=== PATIENT | female | born 1935 | race African-American/Black ===

== ENCOUNTER 2020-09-02 10:50 | Inpatient (IN) | payer MEDICARE, MEDICAID ==
[2020-09-01] MEDS: DEXT 5%/0.45% NACL 1000ML 1,000 ML IV SCH (02:15)
[~2020-09-02] VITALS: Ht 180.3 cm; Wt 59.4 kg
[2020-09-02] MEDS ORDERED: SODIUM CHLORIDE 0.9% 1,000 ML IV ONE (11:15)
[2020-09-02] MEDS ORDERED: PANTOPRAZOLE SODIUM 40 MG/VIAL IV ONE (11:15)
[2020-09-02 11:55] LABS: BASOPHILS % 0.2 % (0.0-2.0); HEMATOCRIT. 22.7 % (36.0-48.0); HEMOGLOBIN. 7.1 g/dL (12.0-16.0); LYMPHOCYTES % 7.9 % (20.0-50.0); MEAN CORPUSCULAR HEMOGLOBIN 26.6 pg (28.0-32.0); MEAN CORPUSCULAR VOLUME 85.7 fL (81.0-99.0); MEAN PLATELET VOLUME 8.8 fl (7.4-10.4); MONOCYTES % 4.1 % (2.0-8.0); NEUTROPHILS % 87.8 % (40.0-76.0); PLATELET 197 x1000/uL (130-400); RED BLOOD CELL COUNT 2.65 mill/uL (4.2-5.4); RED CELL DISTRIBUTION WIDTH 15.7 % (11.6-14.6)
[2020-09-02 12:02] LABS: CHLORIDE 110 mEq/L (98-107)
[2020-09-02 12:04] LABS: INR 1.1; PROTHROMBIN TIME 11.4 sec (9.6-11.0)
[2020-09-02] MEDS ORDERED: SODIUM CHLORIDE 0.9% 1000ML BAG (SEPSIS BOLUS) IV ONE (12:15)
[2020-09-02] MEDS ORDERED: PIPERACILLIN/TAZ 3.375G PREMIX 50 ML IV ONE (12:15)
[2020-09-02 16:08] LABS: CLARITY URINE CLEAR (CLEAR); COLOR URINE YELLOW (YELLOW); KETONES URINE NEGATIVE (NEGATIVE); LEUKOCYTE ESTERASE URINE NEGATIVE (NEGATIVE); NITRITE URINE NEGATIVE (NEGATIVE); OCCULT BLOOD URINE NEGATIVE (NEGATIVE); PH URINE 5.5 (4.5-8.0); PROTEIN URINE NEGATIVE (NEGATIVE); SPECIFIC GRAVITY URINE 1.027 (1.005-1.030)
[2020-09-02 16:40] LABS: BG BASE EXCESS -3.5 mmol/L (-2.0-2.0); BG CARBOXYHEMOGLOBIN 0.3 % (0.5-1.5); BG DEOXYHEMOGLOBIN 11.6 % (0.0-5.0); BG METHEMOGLOBIN 0.3 % (0.0-1.5); BG OXYGEN SATURATION 88.3 % (92.0-98.5); BG OXYHEMOGLOBIN 87.8 % (94.0-97.0); BG PCO2 29.8 mmHg (35.0-45.0); BG PH 7.444 (7.350-7.450); BG PO2 51.8 mmHg (75.0-100.0); BG SAMPLE SITE RIGHT RADIAL; BG TOTAL HEMOGLOBIN 8.8 g/dL (12.0-18.0); BG VENT MODE ROOM AIR
[2020-09-02] MEDS ORDERED: MELO-106 PO (17:33)
[2020-09-02] MEDS ORDERED: ASCO500C18 MT (17:34)
[2020-09-02 17:37] VITALS: BP 147/84
[2020-09-02] MEDS ORDERED: ONDANSETRON HCL 4MG/2ML INJ IV PRN (17:45)
[2020-09-02] MEDS ORDERED: MORPHINE SULFATE 2 MG/ML CPJ (NOT FOR IM USE) IV PRN (17:45)
[2020-09-02] MEDS ORDERED: LORAZEPAM 2MG/ML CPJ IV PRN (17:45)
[2020-09-02] MEDS ORDERED: ACETAMINOPHEN 325MG TABLET PO PRN (17:45)
[2020-09-02] MEDS ORDERED: DIPHENHYDRAMINE 50MG/ML VIAL IV PRN (17:45)
[2020-09-02] MEDS ORDERED: ACETAMINOPHEN 650MG SUPP PR PRN (17:45)
[2020-09-02 17:49] VITALS: BP 98/84
[2020-09-02] MEDS ORDERED: DILTIAZEM HCL 30MG TABLET PO ONE (18:00)
[2020-09-02] MEDS ORDERED: DILTIAZEM HCL 30MG TABLET PO NR (18:00)
[2020-09-02] MEDS ORDERED: ALBUTEROL 6.7GM HFA INHALER ORI SCH (18:30)
[2020-09-02] MEDS: DEXAMETHASONE 10 MG/ML VIAL IV SCH (18:51)
[2020-09-02 20:00] VITALS: BP 130/72
[2020-09-02] MEDS ORDERED: VANCOMYCIN 1500MG in DEXTROSE 5% WATER 250ML IV NR (20:00)
[2020-09-02 20:48] LABS: HEMATOCRIT 31.4 % (36.0-48.0); HEMOGLOBIN 9.8 g/dL (12.0-16.0)
[2020-09-02] MEDS: PANTOPRAZOLE SODIUM 40 MG/VIAL IV SCH (23:21)
[2020-09-02] MEDS: PIPERACILLIN/TAZOBACTAM 3.375 G in DEXT 5% WATER 100 ML IV SCH (23:22)
[2020-09-02 23:24] LABS: HEMATOCRIT 28.4 % (36.0-48.0)
[2020-09-02 23:31] LABS: INR 1.1; PROTHROMBIN TIME 11.7 sec (9.6-11.0)
[2020-09-02 23:35] LABS: CREATINE KINASE 151 IU/L (26-192)
[2020-09-02 23:36] LABS: CREATINE KINASE MB FRACTION 2.5 ng/mL (0.5-3.6)
[2020-09-03] VITALS: BP 122/81
[2020-09-03 04:00] VITALS: BP 119/76
[2020-09-03] MEDS: PIPERACILLIN/TAZOBACTAM 3.375 G in DEXT 5% WATER 100 ML IV SCH ×3 (06:25→23:48)
[2020-09-03 06:56] LABS: BASOPHILS % 0.2 % (0.0-2.0); HEMATOCRIT. 27.1 % (36.0-48.0); HEMOGLOBIN. 8.8 g/dL (12.0-16.0); LYMPHOCYTES % 7.8 % (20.0-50.0); MEAN CORPUSCULAR HEMOGLOBIN 27.7 pg (28.0-32.0); MEAN CORPUSCULAR VOLUME 85.2 fL (81.0-99.0); MEAN PLATELET VOLUME 8.9 fl (7.4-10.4); MONOCYTES % 4.6 % (2.0-8.0); NEUTROPHILS % 87.4 % (40.0-76.0); PLATELET 164 x1000/uL (130-400); RED BLOOD CELL COUNT 3.18 mill/uL (4.2-5.4); RED CELL DISTRIBUTION WIDTH 14.9 % (11.6-14.6)
[2020-09-03 07:33] LABS: CHLORIDE 114 mEq/L (98-107)
[2020-09-03 08:00] VITALS: BP 106/69
[2020-09-03 08:03] LABS: FOLIC ACID (FOLATE) SERUM 11.9 ng/mL (>5.38)
[2020-09-03 08:06] LABS: LDL CHOLESTEROL 61 mg/dL (5-100)
[2020-09-03 08:08] LABS: HDL CHOLESTEROL 40 mg/dL (40-59)
[2020-09-03 08:09] LABS: TOTAL IRON BINDING CAPACITY 322 ug/dL (250-450)
[2020-09-03 08:11] LABS: CREATINE KINASE MB FRACTION 2.2 ng/mL (0.5-3.6)
[2020-09-03 08:12] LABS: CREATINE KINASE 154 IU/L (26-192); T4 FREE 1.25 ng/dL (0.76-1.46)
[2020-09-03] MEDS: DEXAMETHASONE 10 MG/ML VIAL IV SCH (09:22)
[2020-09-03] MEDS: PANTOPRAZOLE SODIUM 40 MG/VIAL IV SCH ×2 (09:22→20:39)
[2020-09-03] MEDS: VANCOMYCIN 1 G PREMIX 200 ML IV SCH (09:22)
[2020-09-03] MEDS: DEXT 5%/0.45% NACL 1000ML 1,000 ML IV SCH (11:13)
[2020-09-03 12:00] VITALS: BP 124/76
[2020-09-03 12:15] LABS: BG BASE EXCESS -0.9 mmol/L (-2.0-2.0); BG CARBOXYHEMOGLOBIN 0.3 % (0.5-1.5); BG DEOXYHEMOGLOBIN 6.3 % (0.0-5.0); BG HCO3 ACT 21.5 mmol/L (22.0-26.0); BG METHEMOGLOBIN 0.3 % (0.0-1.5); BG OXYGEN SATURATION 93.7 % (92.0-98.5); BG OXYHEMOGLOBIN 93.1 % (94.0-97.0); BG PCO2 28.1 mmHg (35.0-45.0); BG PH 7.501 (7.350-7.450); BG PO2 63.6 mmHg (75.0-100.0); BG SAMPLE SITE RIGHT RADIAL; BG TOTAL HEMOGLOBIN 10.1 g/dL (12.0-18.0); BG VENT MODE ROOM AIR
[2020-09-03 16:00] VITALS: BP 131/73
[2020-09-03] MEDS: METHYLPREDNISOLONE SOD SUCC 40 MG/ML VIAL IV SCH (16:56)
[2020-09-03] MEDS: SUCRALFATE 1 G/10 ML UDC PO SCH ×2 (16:56→21:05)
[2020-09-03 20:00] VITALS: BP 130/78
[2020-09-03] MEDS: IRON SUCROSE COMPLEX 100 MG/5 ML ML IV SCH (21:05)
[2020-09-04] VITALS: BP_SYST 117; BP_SYST 175; BP_DIAS 131; BP_DIAS 70
[2020-09-04] MEDS: METHYLPREDNISOLONE SOD SUCC 40 MG/ML VIAL IV SCH ×2 (03:23→16:54)
[2020-09-04] MEDS: VANCOMYCIN 1 G PREMIX 200 ML IV SCH ×2 (03:23→21:57)
[2020-09-04] MEDS: DEXT 5%/0.45% NACL 1000ML 1,000 ML IV SCH ×2 (03:23→22:07)
[2020-09-04 04:00] VITALS: BP 112/77
[2020-09-04 06:02] LABS: PROTHROMBIN TIME 11.1 sec (9.6-11.0)
[2020-09-04 06:07] LABS: HEMATOCRIT. 25.3 % (36.0-48.0); HEMOGLOBIN. 8.3 g/dL (12.0-16.0); MEAN PLATELET VOLUME 9.2 fl (7.4-10.4); PLATELET 169 x1000/uL (130-400); RED BLOOD CELL COUNT 2.98 mill/uL (4.2-5.4); RED CELL DISTRIBUTION WIDTH 15.1 % (11.6-14.6)
[2020-09-04] MEDS: PIPERACILLIN/TAZOBACTAM 3.375 G in DEXT 5% WATER 100 ML IV SCH ×2 (06:11→16:54)
[2020-09-04] MEDS: SUCRALFATE 1 G/10 ML UDC PO SCH ×4 (06:14→22:02)
[2020-09-04 07:39] LABS: CHLORIDE 112 mEq/L (98-107)
[2020-09-04 08:20] VITALS: BP 127/77
[2020-09-04] MEDS ORDERED: METOCLOPRAMIDE HCL 10MG/2ML VIAL IV SCH ×2 (09:30→11:30)
[2020-09-04] MEDS: PANTOPRAZOLE SODIUM 40 MG/VIAL IV SCH ×2 (09:57→21:34)
[2020-09-04 12:06] VITALS: BP 106/68
[2020-09-04] MEDS ORDERED: FENTANYL CITRATE/PF 50MCG/ML 2ML VIAL ONE (14:33)
[2020-09-04] MEDS ORDERED: DIPHENHYDRAMINE 50MG/ML VIAL ONE (14:34)
[2020-09-04] MEDS ORDERED: MIDAZOLAM HCL 2 MG/2 ML VIAL ONE (14:34)
[2020-09-04 16:17] VITALS: BP 122/67
[2020-09-04 16:49] LABS: PLATELET ESTIMATE NORMAL
[2020-09-04] MEDS: METOCLOPRAMIDE HCL 10MG/2ML VIAL IV SCH ×2 (16:55→21:38)
[2020-09-04 20:00] VITALS: BP 108/67
[2020-09-04] MEDS: IRON SUCROSE COMPLEX 100 MG/5 ML ML IV SCH (21:42)
[2020-09-05] VITALS: BP 126/79
[2020-09-05] MEDS: PIPERACILLIN/TAZOBACTAM 3.375 G in DEXT 5% WATER 100 ML IV SCH ×3 (01:07→17:37)
[2020-09-05] MEDS: METHYLPREDNISOLONE SOD SUCC 40 MG/ML VIAL IV SCH ×2 (03:44→17:37)
[2020-09-05 04:00] VITALS: BP 119/74
[2020-09-05] MEDS: SUCRALFATE 1 G/10 ML UDC PO SCH ×5 (06:10→21:44)
[2020-09-05] MEDS: METOCLOPRAMIDE HCL 10MG/2ML VIAL IV SCH ×5 (06:10→21:43)
[2020-09-05 06:54] LABS: BASOPHILS % 0.2 % (0.0-2.0); HEMATOCRIT. 26.2 % (36.0-48.0); HEMOGLOBIN. 8.5 g/dL (12.0-16.0); LYMPHOCYTES % 8.2 % (20.0-50.0); MEAN CORPUSCULAR HEMOGLOBIN 27.7 pg (28.0-32.0); MEAN CORPUSCULAR VOLUME 85.4 fL (81.0-99.0); MEAN PLATELET VOLUME 8.8 fl (7.4-10.4); MONOCYTES % 6.9 % (2.0-8.0); NEUTROPHILS % 84.7 % (40.0-76.0); PLATELET 190 x1000/uL (130-400); RED BLOOD CELL COUNT 3.07 mill/uL (4.2-5.4)
[2020-09-05 07:18] LABS: CHLORIDE 110 mEq/L (98-107)
[2020-09-05 08:15] VITALS: BP 125/71
[2020-09-05] MEDS: PANTOPRAZOLE SODIUM 40 MG/VIAL IV SCH ×2 (09:00→21:43)
[2020-09-05] MEDS ORDERED: POTASSIUM CHLORIDE 20MEQ TABLET SR PO NR (11:00)
[2020-09-05] MEDS ORDERED: POTASSIUM CHLORIDE 20MEQ TABLET SR PO ONE (11:00)
[2020-09-05 12:12] VITALS: BP 129/70
[2020-09-05] MEDS: VANCOMYCIN 750 MG PREMIX 150 ML IV SCH (14:13)
[2020-09-05 14:37] LABS: BG BASE EXCESS -3.3 mmol/L (-2.0-2.0); BG CARBOXYHEMOGLOBIN 0.3 % (0.5-1.5); BG DEOXYHEMOGLOBIN 7.1 % (0.0-5.0); BG FRACTION INSPIRED OXYGEN 21; BG HCO3 ACT 20.2 mmol/L (22.0-26.0); BG METHEMOGLOBIN 0.3 % (0.0-1.5); BG OXYGEN SATURATION 92.9 % (92.0-98.5); BG OXYHEMOGLOBIN 92.3 % (94.0-97.0); BG PCO2 30.5 mmHg (35.0-45.0); BG PH 7.439 (7.350-7.450); BG PO2 61.7 mmHg (75.0-100.0); BG SAMPLE SITE RIGHT BRACHIAL; BG TOTAL HEMOGLOBIN 9.3 g/dL (12.0-18.0); BG VENT MODE ROOM AIR
[2020-09-05] MEDS ORDERED: POTASSIUM CHLORIDE 20MEQ/PACKET PO NR (15:15)
[2020-09-05 16:00] VITALS: BP 152/80
[2020-09-05] MEDS: DEXT 5%/0.45% NACL 1000ML 1,000 ML IV SCH (17:37)
[2020-09-05 20:00] VITALS: BP 135/75
[2020-09-05] MEDS: IRON SUCROSE COMPLEX 100 MG/5 ML ML IV SCH (21:44)
[2020-09-06] VITALS: BP 143/91
[2020-09-06] MEDS: PIPERACILLIN/TAZOBACTAM 3.375 G in DEXT 5% WATER 100 ML IV SCH ×3 (00:33→16:42)
[2020-09-06] MEDS: VANCOMYCIN 750 MG PREMIX 150 ML IV SCH ×2 (00:33→11:23)
[2020-09-06 04:00] VITALS: BP 127/72
[2020-09-06] MEDS: METHYLPREDNISOLONE SOD SUCC 40 MG/ML VIAL IV SCH ×2 (04:48→16:42)
[2020-09-06] MEDS: DEXT 5%/0.45% NACL 1000ML 1,000 ML IV SCH (04:48)
[2020-09-06] MEDS: SUCRALFATE 1 G/10 ML UDC PO SCH ×3 (06:27→16:42)
[2020-09-06] MEDS: METOCLOPRAMIDE HCL 10MG/2ML VIAL IV SCH ×3 (06:27→16:42)
[2020-09-06] MEDS ORDERED: CLON0.2T MT (06:57)
[2020-09-06] MEDS ORDERED: ZINC50TA69 PO (06:57)
[2020-09-06] MEDS ORDERED: LOSA25TA26 MT (07:04)
[2020-09-06] MEDS ORDERED: DONE10TA36 MT (07:04)
[2020-09-06] MEDS ORDERED: NIFE-72 MT (07:04)
[2020-09-06] MEDS ORDERED: LOVA40TA73 MT (07:04)
[2020-09-06] MEDS ORDERED: MEMA10TA55 MT (07:04)
[2020-09-06] MEDS ORDERED: ATEN50TA MT (07:04)
[2020-09-06] MEDS ORDERED: NIFE20CA MT (07:04)
[2020-09-06] MEDS ORDERED: SERT-422 MT (07:04)
[2020-09-06] MEDS ORDERED: HYDR-4135 MT (07:04)
[2020-09-06] MEDS ORDERED: ZINC50TA69 MT (07:04)
[2020-09-06 07:40] LABS: HEMOGLOBIN. 8.3 g/dL (12.0-16.0); MEAN CORPUSCULAR HEMOGLOBIN 27.9 pg (28.0-32.0); MEAN CORPUSCULAR VOLUME 84.4 fL (81.0-99.0); MEAN PLATELET VOLUME 8.3 fl (7.4-10.4); PLATELET 207 x1000/uL (130-400); RED BLOOD CELL COUNT 2.96 mill/uL (4.2-5.4); RED CELL DISTRIBUTION WIDTH 15.2 % (11.6-14.6)
[2020-09-06 08:00] VITALS: BP 150/82
[2020-09-06 08:32] LABS: CHLORIDE 113 mEq/L (98-107)
[2020-09-06] MEDS ORDERED: POTASSIUM CHLORIDE 20MEQ/PACKET PO NR (08:45)
[2020-09-06] MEDS: PANTOPRAZOLE SODIUM 40 MG/VIAL IV SCH (09:09)
[2020-09-06 10:50] LABS: NUCLEATED RED BLOOD CELLS 3 /100 WBC; PLATELET ESTIMATE NORMAL
[2020-09-06 12:00] VITALS: BP 117/61
[2020-09-06 16:00] VITALS: BP 145/81
[2020-09-06] MEDS ORDERED: SUCR1TAB30 MT (16:36)
[2020-09-06] MEDS ORDERED: AMOX-424 MT (16:36)
[2020-09-06] MEDS ORDERED: PROT40 MT (16:36)
[2020-09-06 17:45] VITALS: BP 145/81
== END 2020-09-06 19:25 | disposition home or self-care (01) | DRG 374 ==
LOC: ER 11:09 → 7WST 14:14 → EDBEDREQSVC 14:19 → EDBEDREQ 14:19 → ENRESERV 14:48 → SUPCPDRO 16:10 → 6WST 09-03 06:28
PROVIDERS: ADMIT Internal Medicine; ATTEND Internal Medicine
PROC: 30233N1 Transfusion of Nonautologous Red Blood Cells into Peripheral Vein, Percutaneous Approach (ICD-10-PCS; 2020-09-02)
PROC: 0DB68ZX Excision of Stomach, Via Natural or Artificial Opening Endoscopic, Diagnostic (ICD-10-PCS; principal; 2020-09-04)
DX: C16.9 Malignant neoplasm of stomach, unspecified (principal); A41.9 Sepsis, unspecified organism; J18.9 Pneumonia, unspecified organism; K25.4 Chronic or unspecified gastric ulcer with hemorrhage; E46 Unspecified protein-calorie malnutrition; E87.2 Acidosis; I47.2 Ventricular tachycardia; C85.93 Non-Hodgkin lymphoma, unspecified, intra-abdominal lymph nodes; Z68.1 Body mass index [BMI] 19.9 or less, adult; D50.9 Iron deficiency anemia, unspecified; E87.6 Hypokalemia; M16.11 Unilateral primary osteoarthritis, right hip; K80.20 Calculus of gallbladder without cholecystitis without obstruction; K42.9 Umbilical hernia without obstruction or gangrene; R09.02 Hypoxemia; M17.11 Unilateral primary osteoarthritis, right knee; R73.9 Hyperglycemia, unspecified; D17.79 Benign lipomatous neoplasm of other sites; K75.3 Granulomatous hepatitis, not elsewhere classified; Z79.899 Other long term (current) drug therapy; Z87.891 Personal history of nicotine dependence; Z20.822 Contact with and (suspected) exposure to COVID-19
CPT/HCPCS: 36415; 36600; 71045; 74176; 80048; 80053; 80061; 80202; 81003; 82375; 82378; 82550; 82553; 82607; 82728; 82746; 82805; 83540; 83550; 83605; 83735; 84145; 84439; 84443; 84484; 85014; 85018; 85025; 85044; 85049; 85384; 86850; 86900; 86920; 87426; 88305; 88313; 93005; 93306; 93970; 99291; C9113; J1100; J1200; J2250; J2543; J2765; J2920; J3010; J3370; J7030; J7060; P9016; U0003

== ENCOUNTER 2020-09-07 12:42 | Inpatient (IN) | payer MEDICARE, MEDICAID ==
[~2020-09-07] VITALS: Ht 160 cm; Wt 51.7 kg
[~2020-09-07 12:42] MED LIST: AMOX-424 MT; ASCO500C18 MT; ATEN50TA MT; DONE10TA36 MT; HYDR-4135 MT; LOSA25TA26 MT; LOVA40TA73 MT; MELO-106 PO; MEMA10TA55 MT; NIFE20CA MT; PROT40 MT; SERT-422 MT; SUCR1TAB30 MT; ZINC50TA69 PO
[2020-09-07] MEDS ORDERED: ONDANSETRON HCL 4MG/2ML INJ IV STA (12:49)
[2020-09-07] MEDS ORDERED: SODIUM CHLORIDE 0.9% 1,000 ML IV ONE (13:00)
[2020-09-07] MEDS ORDERED: PANTOPRAZOLE SODIUM 40 MG/VIAL IV ONE (13:15)
[2020-09-07 13:34] LABS: HEMATOCRIT. 22.9 % (36.0-48.0); HEMOGLOBIN. 7.2 g/dL (12.0-16.0); MEAN CORPUSCULAR HEMOGLOBIN 27.7 pg (28.0-32.0); MEAN CORPUSCULAR VOLUME 88.1 fL (81.0-99.0); MEAN PLATELET VOLUME 8.3 fl (7.4-10.4); PLATELET 230 x1000/uL (130-400); RED CELL DISTRIBUTION WIDTH 15.2 % (11.6-14.6)
[2020-09-07 13:35] LABS: BG BASE EXCESS -2.8 mmol/L (-2.0-2.0); BG CARBOXYHEMOGLOBIN 0.2 % (0.5-1.5); BG FRACTION INSPIRED OXYGEN 21; BG HCO3 ACT 20.5 mmol/L (22.0-26.0); BG METHEMOGLOBIN 0.5 % (0.0-1.5); BG OXYHEMOGLOBIN 93.3 % (94.0-97.0); BG PCO2 28.7 mmHg (35.0-45.0); BG PH 7.471 (7.350-7.450); BG PO2 70.3 mmHg (75.0-100.0); BG SAMPLE SITE RIGHT RADIAL; BG VENT MODE ROOM AIR
[2020-09-07 13:38] LABS: CHLORIDE 117 mEq/L (98-107)
[2020-09-07 13:43] LABS: INR 1.1; PROTHROMBIN TIME 11.9 sec (9.6-11.0)
[2020-09-07 13:45] LABS: TOTAL IRON BINDING CAPACITY 345 ug/dL (250-450)
[2020-09-07 13:51] LABS: PLATELET ESTIMATE NORMAL
[2020-09-07] MEDS ORDERED: PIPERACILLIN/TAZ 3.375G PREMIX 50 ML IV ONE (14:00)
[2020-09-07] MEDS ORDERED: IPRATROPIUM/ALBUTEROL 0.5-3(2.5)MG/3ML NEB NEB PRN (16:45)
[2020-09-07] MEDS ORDERED: GUAIFENESIN 200MG/10ML SUGAR FREE UDC PO PRN (16:45)
[2020-09-07] MEDS ORDERED: DOCUSATE SODIUM 100MG CAPSULE PO PRN (16:45)
[2020-09-07] MEDS ORDERED: HYDROCODONE/ACETAMINOPHEN 5/325MG TABLET PO PRN (16:45)
[2020-09-07] MEDS ORDERED: ONDANSETRON HCL 4MG/2ML INJ IV PRN (16:45)
[2020-09-07] MEDS ORDERED: DIPHENHYDRAMINE 50MG/ML VIAL IV PRN (16:45)
[2020-09-07] MEDS ORDERED: ACETAMINOPHEN 650MG SUPP PR PRN (16:45)
[2020-09-07] MEDS ORDERED: MORPHINE SULFATE 2 MG/ML CPJ (NOT FOR IM USE) IV PRN (16:45)
[2020-09-07] MEDS ORDERED: LORAZEPAM 0.5MG TABLET PO PRN (16:45)
[2020-09-07] MEDS ORDERED: MAGNESIUM/ALUMINUM HYDROXIDE/SIMETHICONE 30ML UDC PO PRN (16:45)
[2020-09-07] MEDS ORDERED: ACETAMINOPHEN 650MG/20.3ML UDC GT PRN (16:45)
[2020-09-07] MEDS: SODIUM CHLORIDE 0.45% 1,000 ML IV SCH (17:20)
[2020-09-07] MEDS: PANTOPRAZOLE SODIUM 40 MG/VIAL IV SCH (17:21)
[2020-09-07 18:10] LABS: HEMOGLOBIN 7.1 g/dL (12.0-16.0)
[2020-09-07 18:24] LABS: TOTAL IRON BINDING CAPACITY 280 ug/dL (250-450)
[2020-09-07 18:55] LABS: CLARITY URINE CLEAR (CLEAR); COLOR URINE YELLOW (YELLOW); KETONES URINE NEGATIVE (NEGATIVE); LEUKOCYTE ESTERASE URINE 3+ (NEGATIVE); NITRITE URINE NEGATIVE (NEGATIVE); OCCULT BLOOD URINE 3+ (NEGATIVE); PROTEIN URINE NEGATIVE (NEGATIVE); SPECIFIC GRAVITY URINE 1.016 (1.005-1.030); UROBILINOGEN URINE 0.2 E.U./dL (0.2-1.0)
[2020-09-07 20:35] VITALS: BP 126/68
[2020-09-07] MEDS: SUCRALFATE 1 G/10 ML UDC PO SCH (23:14)
[2020-09-08 00:26] VITALS: BP 133/77
[2020-09-08] MEDS ORDERED: PIPERACILLIN/TAZ 3.375G PREMIX 50 ML IV SCH (01:00)
[2020-09-08] MEDS: IPRATROPIUM/ALBUTEROL 0.5-3(2.5)MG/3ML NEB HHN SCH ×2 (01:46→08:02)
[2020-09-08] MEDS: PIPERACILLIN/TAZOBACTAM 3.375 G in DEXT 5% WATER 100 ML IV SCH ×2 (02:08→09:08)
[2020-09-08 04:00] VITALS: BP 108/69
[2020-09-08] MEDS: SUCRALFATE 1 G/10 ML UDC PO SCH (06:38)
[2020-09-08 07:05] LABS: CHLORIDE 118 mEq/L (98-107)
[2020-09-08 07:21] LABS: HEMATOCRIT. 22.3 % (36.0-48.0); HEMOGLOBIN. 7.2 g/dL (12.0-16.0); MEAN CORPUSCULAR HEMOGLOBIN 27.7 pg (28.0-32.0); MEAN PLATELET VOLUME 8.4 fl (7.4-10.4); PLATELET 171 x1000/uL (130-400); RED CELL DISTRIBUTION WIDTH 15.1 % (11.6-14.6)
[2020-09-08 07:25] LABS: LDL CHOLESTEROL 52 mg/dL (5-100)
[2020-09-08 07:28] LABS: HDL CHOLESTEROL 31 mg/dL (40-59)
[2020-09-08 08:00] VITALS: BP 113/59
[2020-09-08] MEDS: PANTOPRAZOLE SODIUM 40 MG/VIAL IV SCH (09:08)
[2020-09-08] MEDS: SODIUM CHLORIDE 0.45% 1,000 ML IV SCH (09:08)
[2020-09-08] MEDS ORDERED: DEXTROSE 5% WATER 1,000 ML IV SCH (10:45)
[2020-09-08] MEDS ORDERED: POTASSIUM CHLORIDE 20MEQ TABLET SR PO SCH (11:00)
[2020-09-08 22:19] LABS: PLATELET ESTIMATE NORMAL
== END 2020-09-08 12:52 | disposition left against medical advice (07) | DRG 871 ==
LOC: ER 12:42 → 6WST 14:07 → EDBEDREQ 14:15 → EDBEDREQSVC 17:00 → ENRESERV 20:06
PROVIDERS: ADMIT Internal Medicine; ATTEND Internal Medicine
PROC: 30233N1 Transfusion of Nonautologous Red Blood Cells into Peripheral Vein, Percutaneous Approach (ICD-10-PCS; principal; 2020-09-07)
DX: A41.9 Sepsis, unspecified organism (principal); J18.9 Pneumonia, unspecified organism; C16.9 Malignant neoplasm of stomach, unspecified; E46 Unspecified protein-calorie malnutrition; E87.0 Hyperosmolality and hypernatremia; E87.2 Acidosis; K92.2 Gastrointestinal hemorrhage, unspecified; D50.0 Iron deficiency anemia secondary to blood loss (chronic); F03.90 Unspecified dementia, unspecified severity, without behavioral disturbance, psychotic disturbance, mood disturbance, and anxiety; I10 Essential (primary) hypertension; K80.20 Calculus of gallbladder without cholecystitis without obstruction; D17.9 Benign lipomatous neoplasm, unspecified; K75.3 Granulomatous hepatitis, not elsewhere classified; Z53.29 Procedure and treatment not carried out because of patient's decision for other reasons; K42.9 Umbilical hernia without obstruction or gangrene; M47.9 Spondylosis, unspecified; M16.11 Unilateral primary osteoarthritis, right hip; M17.11 Unilateral primary osteoarthritis, right knee; R73.9 Hyperglycemia, unspecified; Z68.20 Body mass index [BMI] 20.0-20.9, adult; Z79.899 Other long term (current) drug therapy; R00.0 Tachycardia, unspecified; R06.03 Acute respiratory distress
CPT/HCPCS: 36415; 36600; 71045; 80053; 80061; 81003; 82270; 82375; 82728; 82805; 83540; 83550; 83605; 83735; 83880; 84145; 84484; 85014; 85018; 85025; 85044; 86850; 86900; 86920; 93005; 93970; 94003; 94640; 99291; C9113; J2543; J7030; J7060; P9016